=== PATIENT | female | born 1975 | race Hispanic/Latino ===

== ENCOUNTER 2022-02-20 11:21 | Emergency (ER) | payer OTHER ==
[~2022-02-20] VITALS: Ht 162.6 cm; Wt 77.1 kg
[2022-02-20] MEDS ORDERED: IBUPROFEN IB200 MG PO (11:43)
[2022-02-20] MEDS ORDERED: ACETAMINOPHEN500 MG PO (11:43)
[2022-02-20] MEDS ORDERED: PREDNISONE20 MG PO (11:43)
[2022-02-20] MEDS ORDERED: ACETAMINOPHEN 325 MG TAB ONE (11:57)
[2022-02-20] MEDS ORDERED: KETOROLAC TROMETHAMINE 30 MG/ML VIAL ONE (11:57)
[2022-02-20] MEDS ORDERED: ACETAMINOPHEN 325 MG TAB PO ONE (12:00)
[2022-02-20] MEDS ORDERED: KETOROLAC TROMETHAMINE 30 MG/ML VIAL IM ONE (12:30)
== END 2022-02-20 12:10 | disposition home or self-care (01) ==
LOC: FSED 11:38
DX: M54.42 Lumbago with sciatica, left side (principal); M54.41 Lumbago with sciatica, right side; G58.8 Other specified mononeuropathies; G89.29 Other chronic pain
CPT/HCPCS: 96372; 99282; J1885

== ENCOUNTER 2022-04-10 11:59 | Emergency (ER) | payer OTHER ==
[~2022-04-10] VITALS: Ht 160 cm; Wt 76.7 kg
[~2022-04-10 11:59] MED LIST: ACETAMINOPHEN500 MG PO; IBUPROFEN IB200 MG PO; PREDNISONE20 MG PO
[2022-04-10] MEDS ORDERED: KETOROLAC TROMETHAMINE 30 MG/ML VIAL IV NR (12:32)
[2022-04-10] MEDS ORDERED: GABAPENTIN300 MG PO (12:48)
[2022-04-10] MEDS ORDERED: KETOROLAC TROME10 MG PO (14:05)
== END 2022-04-10 14:17 | disposition home or self-care (01) ==
LOC: FSED 12:30
DX: R10.30 Lower abdominal pain, unspecified (principal); N83.202 Unspecified ovarian cyst, left side; K80.80 Other cholelithiasis without obstruction; M54.9 Dorsalgia, unspecified; G89.29 Other chronic pain
CPT/HCPCS: 74176; 81003; 81025; 96374; 99284; J1885